=== PATIENT | female | born 1935 | race Asian ===

== ENCOUNTER 2017-05-02 20:33 | Inpatient (IN) | payer MEDICARE, MEDICAID ==
[~2017-05-02] VITALS: Ht 157.5 cm; Wt 78.9 kg
[~2017-05-02 20:33] MED LIST: ALLO100T PO; AMLO5TAB4 PO; ATOR20TA65 PO; BENA1POW2 PO; BRIN8DRO RIGHTEYE; COR12 PO; DIFL5DRO RIGHTEYE; DONE10TA43 PO; DORZ10DR9 EACHEYE; ESOM40CA PO; HYDR-4134 PO; KETO5DRO80 EACHEYE; MECL25TA3 PO; MEMA10TA2 PO; OMEP20TA2 PO; TOLT4CAP PO
[2017-05-02 22:34] LABS: CLARITY URINE CLEAR (CLEAR); COLOR URINE YELLOW (YELLOW); GLUCOSE URINE NEGATIVE (NEGATIVE); KETONES URINE NEGATIVE (NEGATIVE); LEUKOCYTE ESTERASE URINE 2+ (NEGATIVE); NITRITE URINE NEGATIVE (NEGATIVE); OCCULT BLOOD URINE 2+ (NEGATIVE); PH URINE 5.5 (4.5-8.0); PROTEIN URINE NEGATIVE (NEGATIVE); SPECIFIC GRAVITY URINE 1.018 (1.005-1.030); UROBILINOGEN URINE 0.2 E.U./dL (0.2-1.0)
[2017-05-02 22:55] LABS: BASOPHILS % 0.9 % (0.0-2.0); EOSINOPHILS % 1.5 % (0.0-5.0); HEMATOCRIT. 35.2 % (36.0-48.0); HEMOGLOBIN. 11.7 g/dL (12.0-16.0); LYMPHOCYTES % 18.6 % (20.0-50.0); MEAN CORPUSCULAR HEMOGLOBIN 32.1 pg (28.0-32.0); MEAN CORPUSCULAR VOLUME 96.3 fL (81.0-99.0); MONOCYTES % 11.1 % (2.0-8.0); NEUTROPHILS % 67.9 % (40.0-76.0); PLATELET 208 x1000/uL (130-400); RED BLOOD CELL COUNT 3.66 mill/uL (4.2-5.4); RED CELL DISTRIBUTION WIDTH 12.9 % (11.6-14.6)
[2017-05-02 23:03] LABS: PROTHROMBIN TIME 10.1 sec (9.4-11.6)
[2017-05-02 23:04] LABS: CHLORIDE 106 mEq/L (98-107)
[2017-05-02 23:08] LABS: CARBON DIOXIDE 28 mEq/L (21-32)
[2017-05-02 23:12] LABS: TROPONIN I < 0.02 ng/mL (0.00-0.04)
[2017-05-03] MEDS ORDERED: CEFTRIAXONE 1 G PREMIX 50 ML IV ONE (00:30)
[2017-05-03] MEDS ORDERED: NON FORMULARY PATIENT HOME MED EA XX SCH ×2 (03:00)
[2017-05-03 03:20] VITALS: BP 146/55
[2017-05-03] MEDS: PANTOPRAZOLE SODIUM 40 MG/VIAL IV SCH ×2 (04:20→08:35)
[2017-05-03] MEDS: SODIUM CHLORIDE 0.45% 1,000 ML IV SCH ×2 (04:21→21:40)
[2017-05-03] MEDS ORDERED: INSULIN LISPRO 100 UNITS/ML SUBCUT SCH ×2 (06:00→17:20)
[2017-05-03] MEDS: HYDRALAZINE 20MG/ML VIAL IV SCH ×3 (06:00→17:11)
[2017-05-03] MEDS: INSULIN LISPRO (LOW DOSE) 100 UNITS/ML SUBCUT SCH ×4 (06:00→21:42)
[2017-05-03] MEDS: BLOOD SUGAR DIAGNOSTIC STRIP TEST SCH ×4 (06:03→21:41)
[2017-05-03 07:28] LABS: HEMOGLOBIN 11.5 g/dL (12.0-16.0)
[2017-05-03 07:57] VITALS: BP 110/44
[2017-05-03] MEDS ORDERED: DORZOLAMIDE 2% OPHTH 10 ML BOTTLE RIGHTEYE SCH (09:00)
[2017-05-03] MEDS ORDERED: BRIMONIDINE 0.2% OPHTH DROPS 5ML RIGHTEYE SCH (09:00)
[2017-05-03 12:02] VITALS: BP 141/46
[2017-05-03] MEDS ORDERED: BRIM15DR2 EACHEYE (13:01)
[2017-05-03] MEDS ORDERED: PRED5DRO7 RIGHTEYE (13:03)
[2017-05-03] MEDS: ALLOPURINOL 100 MG TABLET PO SCH (15:19)
[2017-05-03] MEDS: BRIMONIDINE 0.2% OPHTH DROPS 5ML BOTHEYE SCH ×2 (15:20→21:41)
[2017-05-03] MEDS: PREDNISOLONE ACETATE 1% OPHTH DROPS 1ML RIGHTEYE SCH (15:20)
[2017-05-03 16:00] VITALS: BP 158/97
[2017-05-03 17:25] LABS: HEMOGLOBIN 11.1 g/dL (12.0-16.0)
[2017-05-03 17:46] LABS: TROPONIN I < 0.02 ng/mL (0.00-0.04)
[2017-05-03 20:00] VITALS: BP 115/56
[2017-05-03] MEDS: CEFTRIAXONE 1 G PREMIX 50 ML IV SCH (21:40)
[2017-05-03] MEDS: ATORVASTATIN CALCIUM 10MG TABLET PO SCH (21:41)
[2017-05-03 23:24] LABS: HEMATOCRIT 31.6 % (36.0-48.0); HEMOGLOBIN 10.8 g/dL (12.0-16.0)
[2017-05-04] VITALS (7 sets, daily range): BP systolic 116–148; BP diastolic 45–68
[2017-05-04] MEDS ORDERED: CEFTRIAXONE 1 G PREMIX 50 ML IV SCH (03:00)
[2017-05-04] MEDS: HYDRALAZINE 20MG/ML VIAL IV SCH ×4 (06:00→23:53)
[2017-05-04] MEDS: BLOOD SUGAR DIAGNOSTIC STRIP TEST SCH ×4 (06:39→21:16)
[2017-05-04] MEDS: INSULIN LISPRO (LOW DOSE) 100 UNITS/ML SUBCUT SCH ×2 (06:40→17:09)
[2017-05-04 06:55] LABS: HEMATOCRIT 33.7 % (36.0-48.0); HEMOGLOBIN 11.4 g/dL (12.0-16.0)
[2017-05-04] MEDS: ALLOPURINOL 100 MG TABLET PO SCH (08:19)
[2017-05-04] MEDS: PANTOPRAZOLE SODIUM 40 MG/VIAL IV SCH (08:19)
[2017-05-04] MEDS: BRIMONIDINE 0.2% OPHTH DROPS 5ML BOTHEYE SCH ×2 (08:21→21:16)
[2017-05-04] MEDS: PREDNISOLONE ACETATE 1% OPHTH DROPS 1ML RIGHTEYE SCH (08:21)
[2017-05-04 13:10] LABS: HEMATOCRIT 33.5 % (36.0-48.0); HEMOGLOBIN 11.3 g/dL (12.0-16.0)
[2017-05-04] MEDS: SODIUM CHLORIDE 0.45% 1,000 ML IV SCH (18:10)
[2017-05-04 18:41] LABS: HEMATOCRIT 32.5 % (36.0-48.0); HEMOGLOBIN 11.1 g/dL (12.0-16.0)
[2017-05-04] MEDS: ACETAMINOPHEN 650MG/20.3ML UDC PO PRN (21:16)
[2017-05-04] MEDS: CEFTRIAXONE 1 G PREMIX 50 ML IV SCH (21:16)
[2017-05-04] MEDS: ATORVASTATIN CALCIUM 10MG TABLET PO SCH (21:16)
[2017-05-05] VITALS: BP 130/48
[2017-05-05 00:38] LABS: HEMATOCRIT 30.8 % (36.0-48.0); HEMOGLOBIN 10.4 g/dL (12.0-16.0)
[2017-05-05 04:00] VITALS: BP 142/50
[2017-05-05] MEDS: HYDRALAZINE 20MG/ML VIAL IV SCH ×2 (06:07→12:00)
[2017-05-05 06:40] LABS: HEMATOCRIT 30.9 % (36.0-48.0); HEMOGLOBIN 10.5 g/dL (12.0-16.0)
[2017-05-05] MEDS: INSULIN LISPRO (LOW DOSE) 100 UNITS/ML SUBCUT SCH ×2 (06:52→12:20)
[2017-05-05] MEDS: SODIUM CHLORIDE 0.45% 1,000 ML IV SCH (07:53)
[2017-05-05] MEDS: BLOOD SUGAR DIAGNOSTIC STRIP TEST SCH ×2 (07:53→12:20)
[2017-05-05] MEDS: ACETAMINOPHEN 650MG/20.3ML UDC PO PRN (07:54)
[2017-05-05] MEDS: BRIMONIDINE 0.2% OPHTH DROPS 5ML BOTHEYE SCH (07:54)
[2017-05-05] MEDS: ALLOPURINOL 100 MG TABLET PO SCH (07:55)
[2017-05-05] MEDS: PANTOPRAZOLE SODIUM 40 MG/VIAL IV SCH (07:55)
[2017-05-05] MEDS: PREDNISOLONE ACETATE 1% OPHTH DROPS 1ML RIGHTEYE SCH (07:55)
[2017-05-05 08:20] VITALS: BP 122/50
[2017-05-05 12:08] VITALS: BP 122/40
[2017-05-05 13:27] LABS: HEMATOCRIT 34.5 % (36.0-48.0); HEMOGLOBIN 11.6 g/dL (12.0-16.0)
== END 2017-05-05 14:00 | disposition home or self-care (01) | DRG 378 ==
LOC: ER 22:20 → 6WST 05-03 00:36 → EDBEDREQ 05-03 00:40 → ENRESERV 05-03 01:13
PROVIDERS: ADMIT Internal Medicine Endocrinology, Diabetes & Metabolism; ATTEND Internal Medicine Endocrinology, Diabetes & Metabolism
DX: K57.91 Diverticulosis of intestine, part unspecified, without perforation or abscess with bleeding (principal); N39.0 Urinary tract infection, site not specified; E11.22 Type 2 diabetes mellitus with diabetic chronic kidney disease; I13.10 Hypertensive heart and chronic kidney disease without heart failure, with stage 1 through stage 4 chronic kidney disease, or unspecified chronic kidney disease; D62 Acute posthemorrhagic anemia; H33.20 Serous retinal detachment, unspecified eye; I71.2 Thoracic aortic aneurysm, without rupture; N18.3 Chronic kidney disease, stage 3 (moderate); E66.9 Obesity, unspecified; M85.80 Other specified disorders of bone density and structure, unspecified site; M54.17 Radiculopathy, lumbosacral region; M48.06 Spinal stenosis, lumbar region; M47.812 Spondylosis without myelopathy or radiculopathy, cervical region; D50.0 Iron deficiency anemia secondary to blood loss (chronic); E78.2 Mixed hyperlipidemia; F02.80 Dementia in other diseases classified elsewhere, unspecified severity, without behavioral disturbance, psychotic disturbance, mood disturbance, and anxiety; G30.9 Alzheimer's disease, unspecified; G56.02 Carpal tunnel syndrome, left upper limb; M10.9 Gout, unspecified; Z82.3 Family history of stroke; Z82.49 Family history of ischemic heart disease and other diseases of the circulatory system; Z68.31 Body mass index [BMI] 31.0-31.9, adult
CPT/HCPCS: 36415; 71010; 74176; 80048; 80053; 81001; 82270; 82962; 83605; 83690; 84443; 84484; 84550; 85014; 85018; 85025; 85610; 86850; 86900; 87040; 87086; 93005; 93306; 93970; 96365; 99285; C9113; J0360; J0696; J7030